=== PATIENT | female | born 1975 | race Two or more races ===

== ENCOUNTER → 2021-02-13 | Day surgery (SDC) | payer BC | END | disposition home or self-care (01) | LOC: FMAMMOTONE 09:39 | PROVIDERS: ATTEND Family Medicine | PROC: 0HBV3ZX Excision of Bilateral Breast, Percutaneous Approach, Diagnostic (ICD-10-PCS; principal; 2021-02-13) | DX: N60.31 Fibrosclerosis of right breast (principal); N60.32 Fibrosclerosis of left breast; N60.81 Other benign mammary dysplasias of right breast; N60.82 Other benign mammary dysplasias of left breast; N64.89 Other specified disorders of breast; R92.0 Mammographic microcalcification found on diagnostic imaging of breast | CPT/HCPCS: 19081; 19082; A4648 ==